=== PATIENT | male | born 1935 | race Hispanic/Latino ===

== ENCOUNTER 2017-08-23 19:03 | Observation (INO) | payer MEDICARE ==
[2017-08-23] MEDS ORDERED: Sodium Chloride 0.9% 500 ML IV STA (19:29)
[2017-08-23 20:02] LABS: BASO % 0.5 % (0.0-2.0); EOS # 0.1 K/uL (0.0-0.7); EOS % 0.8 % (0.0-4.0); HEMOGLOBIN 12.2 g/dL (12.0-18.0); LYMPH # 3.5 K/uL (1.0-4.3); LYMPH % 47.2 % (20.0-40.0); MEAN CELL VOLUME 88.9 fl (80.0-94.0); MEAN CORPUSCULAR HEMOGLOBIN 29.6 pg (27.0-31.0); MEAN CORPUSCULAR HGB CONC 33.3 g/dL (33.0-37.0); MEAN PLATELET VOLUME 7.4 fl (7.2-11.7); MONO # 0.5 K/uL (0.0-0.8); MONO % 6.4 % (0.0-10.0); NEUT # 3.3 K/uL (1.8-7.0); NEUT % 45.1 % (50.0-75.0); NRBC % 0.3 % (0.0-0.0); RBC 4.12 Mil/uL (4.40-5.90); RED CELL DISTRIBUTION WIDTH 14.8 % (11.5-14.5); WHITE BLOOD COUNT 7.4 K/uL (4.8-10.8)
[2017-08-23 20:13] LABS: ALB/GLOB RATIO 1.1 (1.0-2.1); ALBUMIN 3.8 g/dL (3.5-5.0); ALT/SGPT 28 U/L (21-72); AST/SGOT 23 U/L (17-59); BLOOD UREA NITROGEN 17 mg/dl (9-20); CALCIUM 8.8 mg/dL (8.4-10.2); GFR AFRICAN-AMERICAN > 60; GFR NON-AFRICAN AMERICAN > 60; LIPASE 86 U/L (23-300)
[2017-08-23 20:15] LABS: SQUAMOUS EPITHIAL < 1 /hpf (0-5); URINE BILIRUBIN NEGATIVE (NEGATIVE); URINE CLARITY SLIGHTY-CLOUDY (Clear); URINE COLOR YELLOW (YELLOW); URINE GLUCOSE (UA) NEG (Normal); URINE LEUKOCYTE ESTERASE NEG Leu/uL (Negative); URINE NITRATE NEGATIVE (NEGATIVE); URINE PROTEIN NEGATIVE (NEGATIVE)
[2017-08-23 20:17] LABS: URINE BLOOD SMALL (NEGATIVE)
[2017-08-23 20:22] LABS: B-TYPE NATRIURETIC PEPTIDE 490 pg/ml (0-900)
--- NOTE | 2017-08-23 20:25 | ED PDOC ---
HPI: Neurologic - General Time Seen by Provider: 08/23/17 19:15 Chief Complaint (Nursing): Weakness/Neurological Deficit Chief Complaint (Provider): Weakness Source: patient, family (), EMS - History of Present Illness Timing/Duration: 1 hour Associated Symptoms: confusion, fatigue, slurred speech, trouble walking, weakness Allergies/Adverse Reactions: Allergies Latex, Natural Rubber Adverse Reaction (Verified 08/24/17 00:18) RASH Home Medications: Ambulatory Orders No Known Home Med 08/23/17 Additional Complaint(s): Zay is an 81 y/o male with no past medical history who was brought to the ED by EMS after his noticed that he seemed confused with stuttering step and trouble speaking. EMS stated that symptoms worsened in the ambulance but resolved on arrival. Patient reports that in the middle of the night last night he had shaking chills and has been feeling malaise and fatigue all day today with a decreased appetite. He also admits to a nonproductive cough for the past week. Patient also complains of a rash on his legs for 2 weeks since visiting [place] that was initially itchy. He has been applying tea tree oil which seemed to help but the rash came back this week. PMD: None Past Medical History Reviewed: Historical Data, Nursing Documentation, Vital Signs Vital Signs: Last Vital Signs Temp 100.7 F H 08/23/17 19:54 Pulse 93 H 08/23/17 19:07 Resp 18 08/23/17 19:07 BP 114/56 L 08/23/17 19:07 Pulse Ox 96 08/23/17 19:07 - Medical History PMH: No Chronic Diseases - Surgical History Surgical History: No Surg Hx - Family History Family History: States: No Known Family Hx - Social History Current smoker - smoking cessation education provided: No Alcohol: None - Home Medications Home Medications: Ambulatory Orders Medication Instructions Recorded No Known Home Med 08/23/17 - Allergies Allergies/Adverse Reactions: Allergies Allergy/AdvReac Type Severity Reaction Status Date / Time Latex, Natural Rubber AdvReac RASH Verified 08/24/17 00:18 Review of Systems ROS Statement: Except As Marked, All Systems Reviewed And Found Negative Constitutional: Positive for: Fever, Chills, Weakness, Malaise, Other ( decreased appetite) Respiratory: Positive for: Cough (non productive) Neurological: Positive for: Incoordination (stuttering step), Change in Speech ( trouble speaking), Confusion Physical Exam - Reviewed Nursing Documentation Reviewed: Yes Vital Signs Reviewed: Yes - Physical Exam Appears: Positive for: Non-toxic, In Acute Distress (febrile, tired appearing) Head Exam: Positive for: ATRAUMATIC, NORMOCEPHALIC Skin: Positive for: Warm, Dry, Rash (dry bilateral lower legs petechial and with pinpoint abrasions) Eye Exam: Positive for: EOMI, PERRL ENT: Positive for: Pharynx Is (clear with tacky musuc membranes) Neck: Positive for: Painless ROM, Supple Cardiovascular/Chest: Positive for: Regular Rate, Rhythm. Negative for: Murmur Respiratory: Negative for: Stridor, Wheezing, Respiratory Distress Gastrointestinal/Abdominal: Positive for: Soft. Negative for: Tenderness Back: Positive for: Normal Inspection. Negative for: Decreased ROM Extremity: Positive for: Normal ROM, Pedal Edema. Negative for: Deformity Lymphatic: Negative for: Adenopathy Neurologic/Psych: Positive for: Alert, geriatric nurse assistant II-XII (intact), Oriented (x3). Negative for: Motor/Sensory Deficits - Laboratory Results Result Diagrams: 08/24/17 07:24 08/24/17 07:24 - ECG ECG Rhythm: Positive for: Normal QRS, Sinus Rhythm, Nonspecific Changes O2 Sat by Pulse Oximetry: 96 (RA) Pulse Ox Interpretation: Normal - Radiology X-Ray: Interpreted by Mi X-Ray Interpretation: Infiltrates (RLL) Medical Decision Making Medical Decision Making: Time: 7:16 Initial Impression: Febrile illness, leg edema, rash Differentials include but are not limited to: influenza, sepsis, pneumonia, dehydration, electrolyte abnormality, DVT, CHF Initial Plan: --Blood Type --EKG --B Type Natriuretic --CMP --Creatine --Lipase --Troponin I --Urine Dip --CBC --PTT --Prothrombin Time --Chest XR --Tylenol --Blood Culture --Urine Culture --Influenza A B --Urinalysis --US Duplex Lower Extremity CTH NAD Venous dopplers: no DVT CXR RML infiltrate 81yo man with no known PMH transient AMS with pneumonia. Needs hospitalization for further management. Concern for near syncope, arrythmia, TIA, or metabolic encephalopathy secondary to pneumonia and possible early sepsis Scribe Attestation: Documented by Jose Champagne, acting as a scribe for Joanie Jones MD. Provider Scribe Attestation: All medical record entries made by the Scribe were at my direction and personally dictated by me. I have reviewed the chart and agree that the record accurately reflects my personal performance of the history, physical exam, medical decision making, and the department course for this patient. I have also personally directed, reviewed, and agree with the discharge instructions and disposition. Disposition - Clinical Impression Clinical Impression: Fever with chills, Pneumonia, Altered mental status Discussed With Dr.: Shyam Doss Doctor Will See Patient In The: Hospital Counseled Patient/Family Regarding: Studies Performed, Diagnosis - Disposition Disposition Time: 21:00 Condition: GUARDED - Pt Status Changed To: Hospital Disposition Of: Observation - POA Present On Arrival: None
--- NOTE | 2017-08-23 20:29 | CT ---
EXAM: CT Head Without Intravenous Contrast CLINICAL HISTORY: 81 years old, male; Signs and symptoms; Altered mental status/memory loss; Confusion or disorientation TECHNIQUE: Axial computed tomography images of the head/brain without intravenous contrast. All CT scans at this facility use one or more dose reduction techniques, viz.: automated exposure control; ma/kV adjustment per patient size (including targeted exams where dose is matched to indication; i.e. head); or iterative reconstruction technique. Coronal and sagittal reformatted images were created and reviewed. COMPARISON: No relevant prior studies available. FINDINGS: Brain: Moderate atrophy. No intracranial hemorrhage. No mass. Minimal decreased attenuation within periventricular white matter. 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 No definite edema. Ventricles: No hydrocephalus. Bones/joints: No acute fracture. Soft tissues: Unremarkable. Vasculature: Atherosclerotic disease of intracranial arteries. Sinuses: Partial opacification of LEFT ethmoid sinus. Scattered minimal to mild mucosal thickening of remaining sinuses. Air-fluid level within LEFT maxillary sinus. Mastoid air cells: No mastoid effusion. Orbits: Unremarkable as visualized. IMPRESSION: 1. Nonspecific white matter changes. Acute infarction may be CT occult within first 24 hours. If a focal deficit persists, consider followup CT or MRI for further evaluation. 2. Sinus disease. 3. Incidental/non-acute findings are described above.
[2017-08-23] MEDS ORDERED: cefTRIAXone (Rocephin) 1 gm Inj ONE (20:35)
[2017-08-23] MEDS ORDERED: Azithromycin 500 MG in Sodium Chloride 0.9% 250 ML IVPB STA (20:40)
[2017-08-23 20:58] LABS: INR 1.3 (0.9-1.2); PROTHROMBIN TIME 14.1 Seconds (9.8-13.1)
--- NOTE | 2017-08-23 21:11 | US ---
EXAM: US Duplex Bilateral Lower Extremity Veins CLINICAL HISTORY: 81 years old, male; Signs and symptoms; Swelling of limb; Lower extremity, bilateral; Additional info: Bilat leg swelling TECHNIQUE: Real-time ultrasound scan of the veins of the bilateral lower extremities with color Doppler flow, spectral waveform analysis and compression. COMPARISON: No relevant prior studies available. FINDINGS: Right deep veins: Normal color and spectral Doppler flow. Normal compressibility. No deep vein thrombosis from common femoral to popliteal vein. Right superficial veins: Unremarkable. Left deep veins: Normal color and spectral Doppler flow. Normal compressibility. No deep vein thrombosis from common femoral to popliteal vein. Left superficial veins: Unremarkable. Soft tissues: No popliteal cyst. IMPRESSION: 1. No evidence of DVT within lower extremities.
[2017-08-23] MEDS ORDERED: Promethazine DM 6.25 mg-15 mg/5 ml Syrup PO PRN (21:25)
[2017-08-23] MEDS ORDERED: Albuterol-Ipratrop 3 mg / 0.5 (3 ml) UD INH PRN (21:25)
[2017-08-24 08:07] LABS: BASO % 0.3 % (0.0-2.0); EOS # 0.1 K/uL (0.0-0.7); LYMPH # 4.9 K/uL (1.0-4.3); LYMPH % 57.5 % (20.0-40.0); MEAN CELL VOLUME 89.5 fl (80.0-94.0); MEAN CORPUSCULAR HEMOGLOBIN 29.4 pg (27.0-31.0); MEAN CORPUSCULAR HGB CONC 32.9 g/dL (33.0-37.0); MEAN PLATELET VOLUME 7.7 fl (7.2-11.7); MONO # 0.5 K/uL (0.0-0.8); MONO % 5.7 % (0.0-10.0); NEUT % 35.5 % (50.0-75.0); NRBC % 0.2 % (0.0-0.0); RBC 3.75 Mil/uL (4.40-5.90); RED CELL DISTRIBUTION WIDTH 14.9 % (11.5-14.5); WHITE BLOOD COUNT 8.5 K/uL (4.8-10.8)
[2017-08-24 08:33] LABS: ALB/GLOB RATIO 0.9 (1.0-2.1); ALT/SGPT 24 U/L (21-72); AST/SGOT 21 U/L (17-59); BLOOD UREA NITROGEN 12 mg/dl (9-20); CALCIUM 8.2 mg/dL (8.4-10.2); GFR AFRICAN-AMERICAN > 60; GFR NON-AFRICAN AMERICAN > 60
[2017-08-24] MEDS ORDERED: guaiFENesin 600 mg ER Tab PO SCH (09:00)
[2017-08-24] MEDS ORDERED: Azithromycin 500 MG in Sodium Chloride 0.9% 250 ML IVPB SCH (09:00)
--- NOTE | 2017-08-24 09:22 | RAD ---
HISTORY: fever weakness COMPARISON: Chest radiograph dated 03/21/2015. FINDINGS: LUNGS: Right basilar infiltrate. PLEURA: No significant pleural effusion identified, no pneumothorax apparent. CARDIOVASCULAR: Atherosclerotic aortic calcifications. Cardiomediastinal silhouette unchanged. OSSEOUS STRUCTURES: Unchanged. VISUALIZED UPPER ABDOMEN: Normal. OTHER FINDINGS: None. IMPRESSION: Right basilar infiltrate.
--- NOTE | 2017-08-24 10:52 | CP.PCM.HP ---
History of Present Illness - History of Present Illness History of Present Illness: pt admitted for pna nad slurred speech. at presents denies complaints. states slurred speech occured when he had fever. no f/c, n/v/d at present. bw noted. all imaging noted. mri completed for ss while in er. resps even and unlabored pt has had alls/s x 2 months. pt also w/ ble erythema. states was pruritic but not so any more. dvt study wnl. Present on Admission - Present on Admission Any Indicators Present on Admission: No Review of Systems - Respiratory Respiratory: As Per HPI, Cough, Chest Congestion Past Patient History - Past Medical History & Family History Past Medical History?: No - Past Social History Smoking Status: Never Smoked - CARDIAC Hx Cardiac Disorders: No - PULMONARY Hx Respiratory Disorders: No - NEUROLOGICAL Hx Neurological Disorder: No - HEENT Hx HEENT Problems: No - RENAL Hx Chronic Kidney Disease: No - ENDOCRINE/METABOLIC Hx Endocrine Disorders: No - HEMATOLOGICAL/ONCOLOGICAL Hx Blood Disorders: No - INTEGUMENTARY Hx Dermatological Problems: No - MUSCULOSKELETAL/RHEUMATOLOGICAL Hx Musculoskeletal Disorders: No Hx Falls: No - GENITOURINARY/GYNECOLOGICAL Hx Genitourinary Disorders: No - PSYCHIATRIC Hx Psychophysiologic Disorder: No Hx Substance Use: No - SURGICAL HISTORY Hx Surgeries: No - ANESTHESIA Hx Anesthesia: No Hx Anesthesia Reactions: No Hx Malignant Hyperthermia: No Has any member of the family had a problem w/ anesthesia?: No Meds Allergies/Adverse Reactions: Allergies Allergy/AdvReac Type Severity Reaction Status Date / Time Latex, Natural Rubber AdvReac RASH Verified 08/24/17 00:18 Physical Exam - Constitutional Appears: Well, Non-toxic, No Acute Distress - Head Exam Head Exam: ATRAUMATIC, NORMAL INSPECTION, NORMOCEPHALIC - Eye Exam Eye Exam: EOMI, Normal appearance, PERRL Pupil Exam: NORMAL ACCOMODATION, PERRL - ENT Exam ENT Exam: Mucous Membranes Moist, Normal Exam - Neck Exam Neck exam: Positive for: Normal Inspection - Respiratory Exam Respiratory Exam: Clear to Auscultation Bilateral, NORMAL BREATHING PATTERN - Cardiovascular Exam Cardiovascular Exam: REGULAR RHYTHM, RRR, +S1, +S2 - GI/Abdominal Exam GI & Abdominal Exam: Normal Bowel Sounds, Soft. absent: Tenderness - Extremities Exam Extremities exam: Positive for: full ROM, normal capillary refill, normal inspection, pedal pulses present - Back Exam Back exam: FULL ROM, NORMAL INSPECTION - Neurological Exam Neurological exam: Alert, CN II-XII Intact, Normal Gait, Oriented x3, Reflexes Normal - Psychiatric Exam Psychiatric exam: Normal Affect, Normal Mood - Skin Skin Exam: Dry, Erythema, Intact, Normal Color, Warm Results - Vital Signs Recent Vital Signs: Last Vital Signs Temp 98.4 F 08/24/17 09:00 Pulse 70 08/24/17 09:00 Resp 16 08/24/17 09:00 BP 98/55 L 08/24/17 09:00 Pulse Ox 96 08/24/17 09:00 - Labs Result Diagrams: 08/24/17 07:24 08/24/17 07:24 Labs: Laboratory Results - last 24 hr 08/23/17 08/23/17 08/23/17 19:19 19:40 19:54 WBC 7.4 RBC 4.12 L Hgb 12.2 Hct 36.6 MCV 88.9 MCH 29.6 MCHC 33.3 RDW 14.8 H Plt Count 140 MPV 7.4 Neut % (Auto) 45.1 L Lymph % (Auto) 47.2 H [place] % (Auto) 6.4 Eos % (Auto) 0.8 Baso % (Auto) 0.5 Neut # 3.3 Lymph # 3.5 [place] # 0.5 Eos # 0.1 Baso # 0.0 PT INR APTT Sodium Potassium Chloride Carbon Dioxide Anion Gap BUN Creatinine Est GFR ( Amer) Est GFR (Non-Af Amer) POC Glucose (mg/dL) 123 H Random Glucose Lactic Acid Calcium Total Bilirubin AST ALT Alkaline Phosphatase Total Creatine Kinase Troponin I NT-Pro-B Natriuret Pep Total Protein Albumin Globulin Albumin/Globulin Ratio Lipase Urine Color Urine Clarity Urine pH Ur Specific [place] Urine Protein Urine Glucose (UA) Urine Ketones Urine Blood Urine Nitrate Urine Bilirubin Urine Urobilinogen Ur Leukocyte Esterase Urine RBC (Auto) Urine Microscopic WBC Ur Squamous Epith Cells Influenza Typ A,B (EIA) Blood Type O NEGATIVE Antibody Screen Negative BBK History Checked No verified bt 08/23/17 08/23/17 08/23/17 19:54 19:54 19:54 WBC RBC Hgb Hct MCV MCH MCHC RDW Plt Count MPV Neut % (Auto) Lymph % (Auto) [place] % (Auto) Eos % (Auto) Baso % (Auto) Neut # Lymph # [place] # Eos # Baso # PT INR APTT Sodium 137 Potassium 3.7 Chloride 100 Carbon Dioxide 25 Anion Gap 16 BUN 17 Creatinine 0.8 Est GFR ( Amer) > 60 Est GFR (Non-Af Amer) > 60 POC Glucose (mg/dL) Random Glucose 112 H Lactic Acid Calcium 8.8 Total Bilirubin 0.9 AST 23 ALT 28 Alkaline Phosphatase 73 Total Creatine Kinase 73 Troponin I < 0.0120 NT-Pro-B Natriuret Pep 490 Total Protein 7.2 Albumin 3.8 Globulin 3.4 Albumin/Globulin Ratio 1.1 Lipase 86 Urine Color Yellow Urine Clarity Slighty-cloudy Urine pH 5.0 Ur Specific [place] 1.023 Urine Protein Negative Urine Glucose (UA) Neg Urine Ketones Trace Urine Blood Small Urine Nitrate Negative Urine Bilirubin Negative Urine Urobilinogen 2.0 Ur Leukocyte Esterase Neg Urine RBC (Auto) 18 H Urine Microscopic WBC < 1 Ur Squamous Epith Cells < 1 Influenza Typ A,B (EIA) Negative for flu a/b Blood Type Antibody Screen BBK History Checked 08/23/17 08/23/17 08/24/17 20:10 21:20 07:24 WBC 8.5 RBC 3.75 L Hgb 11.0 L Hct 33.5 L MCV 89.5 MCH 29.4 MCHC 32.9 L RDW 14.9 H Plt Count MPV 7.7 Neut % (Auto) 35.5 L Lymph % (Auto) 57.5 H [place] % (Auto) 5.7 Eos % (Auto) 1.0 Baso % (Auto) 0.3 Neut # 3.0 Lymph # 4.9 H [place] # 0.5 Eos # 0.1 Baso # 0.0 PT 14.1 H INR 1.3 H APTT 28.0 Sodium Potassium Chloride Carbon Dioxide Anion Gap BUN Creatinine Est GFR ( Amer) Est GFR (Non-Af Amer) POC Glucose (mg/dL) Random Glucose Lactic Acid 0.6 L Calcium Total Bilirubin AST ALT Alkaline Phosphatase Total Creatine Kinase Troponin I NT-Pro-B Natriuret Pep Total Protein Albumin Globulin Albumin/Globulin Ratio Lipase Urine Color Urine Clarity Urine pH Ur Specific [place] Urine Protein Urine Glucose (UA) Urine Ketones Urine Blood Urine Nitrate Urine Bilirubin Urine Urobilinogen Ur Leukocyte Esterase Urine RBC (Auto) Urine Microscopic WBC Ur Squamous Epith Cells Influenza Typ A,B (EIA) Blood Type Antibody Screen BBK History Checked 08/24/17 07:24 WBC RBC Hgb Hct MCV MCH MCHC RDW Plt Count MPV Neut % (Auto) Lymph % (Auto) [place] % (Auto) Eos % (Auto) Baso % (Auto) Neut # Lymph # [place] # Eos # Baso # PT INR APTT Sodium 141 Potassium 3.6 Chloride 105 Carbon Dioxide 29 Anion Gap 11 BUN 12 Creatinine 0.7 L Est GFR ( Amer) > 60 Est GFR (Non-Af Amer) > 60 POC Glucose (mg/dL) Random Glucose 92 Lactic Acid Calcium 8.2 L Total Bilirubin 0.7 AST 21 ALT 24 Alkaline Phosphatase 55 Total Creatine Kinase Troponin I NT-Pro-B Natriuret Pep Total Protein 6.3 Albumin 3.0 L D Globulin 3.3 Albumin/Globulin Ratio 0.9 L Lipase Urine Color Urine Clarity Urine pH Ur Specific [place] Urine Protein Urine Glucose (UA) Urine Ketones Urine Blood Urine Nitrate Urine Bilirubin Urine Urobilinogen Ur Leukocyte Esterase Urine RBC (Auto) Urine Microscopic WBC Ur Squamous Epith Cells Influenza Typ A,B (EIA) Blood Type Antibody Screen BBK History Checked Assessment & Plan (1) Slurred speech Assessment and Plan: mri brain case dc w/ dr smallwood asa Status: Acute (2) DVT prophylaxis Assessment and Plan: scd nad aehose ambulation lovenox if admitted over 24h Status: Acute (3) Rash Assessment and Plan: a/d ointment does not appear to be cellulitic in origin. topical steroid if c/o itch Status: Acute (4) Pneumonia Assessment and Plan: rocephin/zithromax duonebs, phenergen ?? cause of neuro s/s Status: Acute
[2017-08-24] MEDS ORDERED: Vitamin A/D oint 60G TP SCH (11:00)
[2017-08-24] MEDS ORDERED: Vitamins A & D Oint UD Foilpak TOP SCH (11:30)
--- NOTE | 2017-08-24 12:20 | MRI ---
PROCEDURE: MRI BRAIN WITHOUT CONTRAST HISTORY: slurred speech COMPARISON: None. TECHNIQUE: Multiplanar, multisequence MR images of the brain were obtained without intravenous contrast enhancement. FINDINGS: HEMORRHAGE: None DWI: No evidence of an acute or early subacute infarction. BRAIN PARENCHYMA: No mass effect or edema. No atrophy or chronic microvascular ischemic changes. VENTRICLES: Unremarkable. No hydrocephalus. CRANIUM: Unremarkable. ORBITS: Grossly unremarkable. PARANASAL SINUSES/MASTOIDS: Clear VASCULAR SYSTEM: Skull base flow voids intact. OTHER FINDINGS: None. IMPRESSION: No acute findings
--- NOTE | 2017-08-24 13:06 | CARD ---
APPROVED REPORT EKG Measurement Heart [id number] <Conclusion> Normal sinus rhythm with sinus arrhythmia Low voltage QRS Nonspecific ST abnormality Abnormal ECG
[2017-08-24 15:49] VITALS: BP 104/64; PULSE 73; RESP 18; TEMP 98.3; O2SAT 97
--- NOTE | 2017-08-24 15:57 | CP.PCM.DIS ---
Provider - Provider Date of Admission: 08/23/17 21:10 Attending physician: Shawn Subramanian MD Time Spent in preparation of Discharge (in minutes): 15 Diagnosis - Discharge Diagnosis (1) Slurred speech Status: Acute (2) DVT prophylaxis Status: Acute (3) Rash Status: Acute (4) Pneumonia Status: Acute Hospital Course - Lab Results Lab Results: Most Recent Lab Values WBC 8.5 K/uL (4.8-10.8) 08/24/17 07:24 RBC 3.75 Mil/uL (4.40-5.90) L 08/24/17 07:24 Hgb 11.0 g/dL (12.0-18.0) L 08/24/17 07:24 Hct 33.5 % (35.0-51.0) L 08/24/17 07:24 MCV 89.5 fl (80.0-94.0) 08/24/17 07:24 MCH 29.4 pg (27.0-31.0) 08/24/17 07:24 MCHC 32.9 g/dL (33.0-37.0) L 08/24/17 07:24 RDW 14.9 % (11.5-14.5) H 08/24/17 07:24 Plt Count 120 K/uL (130-400) L D 08/24/17 07:24 MPV 7.7 fl (7.2-11.7) 08/24/17 07:24 Neut % (Auto) 35.5 % (50.0-75.0) L 08/24/17 07:24 Lymph % (Auto) 57.5 % (20.0-40.0) H 08/24/17 07:24 [place] % (Auto) 5.7 % (0.0-10.0) 08/24/17 07:24 Eos % (Auto) 1.0 % (0.0-4.0) 08/24/17 07:24 Baso % (Auto) 0.3 % (0.0-2.0) 08/24/17 07:24 Neut # 3.0 K/uL (1.8-7.0) 08/24/17 07:24 Lymph # 4.9 K/uL (1.0-4.3) H 08/24/17 07:24 [place] # 0.5 K/uL (0.0-0.8) 08/24/17 07:24 Eos # 0.1 K/uL (0.0-0.7) 08/24/17 07:24 Baso # 0.0 K/uL (0.0-0.2) 08/24/17 07:24 PT 14.1 Seconds (9.8-13.1) H 08/23/17 20:10 INR 1.3 (0.9-1.2) H 08/23/17 20:10 APTT 28.0 Seconds (25.6-37.1) 08/23/17 20:10 Sodium 141 mmol/l (132-148) 08/24/17 07:24 Potassium 3.6 MMOL/L (3.6-5.0) 08/24/17 07:24 Chloride 105 mmol/L (98-107) 08/24/17 07:24 Carbon Dioxide 29 mmol/L (22-30) 08/24/17 07:24 Anion Gap 11 (10-20) 08/24/17 07:24 BUN 12 mg/dl (9-20) 08/24/17 07:24 Creatinine 0.7 mg/dl (0.8-1.5) L 08/24/17 07:24 Est GFR ( Amer) > 60 08/24/17 07:24 Est GFR (Non-Af Amer) > 60 08/24/17 07:24 POC Glucose (mg/dL) 123 mg/dL (65-110) H 08/23/17 19:19 Random Glucose 92 mg/dL (75-110) 08/24/17 07:24 Lactic Acid 0.6 MMOL/L (0.7-2.1) L 08/23/17 21:20 Calcium 8.2 mg/dL (8.4-10.2) L 08/24/17 07:24 Total Bilirubin 0.7 mg/dl (0.2-1.3) 08/24/17 07:24 AST 21 U/L (17-59) 08/24/17 07:24 ALT 24 U/L (21-72) 08/24/17 07:24 Alkaline Phosphatase 55 U/L (38-126) 08/24/17 07:24 Total Creatine Kinase 73 U/L (55-170) 08/23/17 19:54 Troponin I < 0.0120 ng/mL (0.00-0.120) 08/23/17 19:54 NT-Pro-B Natriuret Pep 490 pg/ml (0-900) 08/23/17 19:54 Total Protein 6.3 G/DL (6.3-8.2) 08/24/17 07:24 Albumin 3.0 g/dL (3.5-5.0) L D 08/24/17 07:24 Globulin 3.3 gm/dL (2.2-3.9) 08/24/17 07:24 Albumin/Globulin Ratio 0.9 (1.0-2.1) L 08/24/17 07:24 Lipase 86 U/L (23-300) 08/23/17 19:54 Urine Color Yellow (YELLOW) 08/23/17 19:54 Urine Clarity Slighty-cloudy (Clear) 08/23/17 19:54 Urine pH 5.0 (5.0-8.0) 08/23/17 19:54 Ur Specific [place] 1.023 (1.003-1.030) 08/23/17 19:54 Urine Protein Negative mg/dL (NEGATIVE) 08/23/17 19:54 Urine Glucose (UA) Neg mg/dL (Normal) 08/23/17 19:54 Urine Ketones Trace mg/dL (NEGATIVE) 08/23/17 19:54 Urine Blood Small (NEGATIVE) 08/23/17 19:54 Urine Nitrate Negative (NEGATIVE) 08/23/17 19:54 Urine Bilirubin Negative (NEGATIVE) 08/23/17 19:54 Urine Urobilinogen 2.0 mg/dL (0.2-1.0) 08/23/17 19:54 Ur Leukocyte Esterase Neg [place]/uL (Negative) 08/23/17 19:54 Urine RBC (Auto) 18 /hpf (0-3) H 08/23/17 19:54 Urine Microscopic WBC < 1 /hpf (0-5) 08/23/17 19:54 Ur Squamous Epith Cells < 1 /hpf (0-5) 08/23/17 19:54 Influenza Typ A,B (EIA) Negative for flu a/b (NEGATIVE) 08/23/17 19:54 Blood Type O NEGATIVE 08/23/17 19:40 Antibody Screen Negative 08/23/17 19:40 BBK History Checked No verified bt 08/23/17 19:40 Discharge Exam - Head Exam Head Exam: ATRAUMATIC, NORMOCEPHALIC Discharge Plan - Discharge Medications Prescriptions: Amoxicillin/Clavulanate [Augmentin 875 MG-125 MG] 1 tab PO BID #14 tab Aspirin [Aspirin Chewable] 81 mg PO DAILY #30 chew Azithromycin [Zithromax] 250 mg PO DAILY #3 tab guaiFENesin [Mucinex LA] 600 mg PO Q12 #60 tab Promethazine DM [Phenergan DM Syrup] 5 ml PO Q6 PRN #250 ml PRN Reason: Cough - Follow Up Plan Condition: IMPROVED Disposition: HOME/ ROUTINE Additional Instructions: cleared by neuro will do fasting bw saturday in office and start pt on statin after blood is collected. pt is not fasting at time of id for need of statin so cannot initiate statin at this time. asa recommended by neuro final dx-pna, tia rted prn, med sper med rec, meds e-rx f/u rmg saturday
== END 2017-08-24 16:50 | disposition home or self-care (01) ==
LOC: H.ER 19:03 → H.ERHOLD 21:10 → H.TEL 22:02
PROVIDERS: ADMIT Family Medicine; ATTEND Family Medicine
DX: J18.9 Pneumonia, unspecified organism (principal); G45.9 Transient cerebral ischemic attack, unspecified; Z91.040 Latex allergy status; R21 Rash and other nonspecific skin eruption
CPT/HCPCS: 36415; 70450; 70551; 71045; 80053; 81003; 82550; 82948; 83605; 83690; 83880; 84484; 85025; 85610; 85730; 86850; 86900; 87040; 87086; 87804; 93005; 93970; 96360; 99285; G0378; J0456; J0696; J7040